=== PATIENT | female | born 1970 | race Asian ===

== ENCOUNTER 2020-11-17 05:13 | Day surgery (SDC) | payer OTHER ==
[2020-11-14 13:07] VITALS: BMI 26.5
[2020-11-17] MEDS ORDERED: MIDAZOLAM HCL 2 MG/2 ML SINGLE DOSE VIAL ONE ×3 (10:16→11:01)
[2020-11-17] MEDS ORDERED: SCOPOLAMINE HYDROBROMIDE 1 PATCH PATCH.TD72 ONE (10:25)
[2020-11-17] MEDS ORDERED: PROPOFOL 20 ML ONE (11:01)
[2020-11-17] MEDS ORDERED: IBUPROFEN 400 MG TABLET (FP) PO PRN (11:26)
[2020-11-17] MEDS ORDERED: ACETAMINOPHEN 325 MG TABLET (FP) PO PRN (11:26)
[2020-11-17] MEDS ORDERED: HYDROmorphone HCl 2 MG/ML VIAL ONE (12:13)
[2020-11-17] MEDS ORDERED: ceFAZolin SODIUM 1 GM VIAL ONE (12:16)
[2020-11-17] MEDS ORDERED: DEXAMETHASONE SOD PHOSPHATE 4 MG/1 ML VIAL ONE (12:16)
[2020-11-17] MEDS ORDERED: NEOSTIGMINE METHYLSULFATE 0.5 MG/ML - 10 ML MDV ONE (12:30)
[2020-11-17] MEDS ORDERED: GLYCOPYRROLATE 0.2 MG/1 ML VIAL ONE (12:30)
[2020-11-17] MEDS ORDERED: ACETAMINOPHEN 500 MG TABLET (FP) PO ONE (13:05)
[2020-11-17] MEDS ORDERED: LACTATED RINGERS SOLUTION 1,000 ML IV SCH (13:15)
[2020-11-17] MEDS ORDERED: ACETAMINOPHEN INJECTION 100 ML IVPB ONE (13:18)
[2020-11-17] MEDS ORDERED: ONDANSETRON 4 MG/2 ML VIAL ONE ×2 (13:56→15:18)
[2020-11-17] MEDS: ONDANSETRON 4 MG/2 ML VIAL IVPUSH PRN ×2 (13:56→15:17)
[2020-11-17] MEDS ORDERED: MECLIZINE HCL 12.5 MG TABLET PO ONE (16:24)
[2020-11-17 16:42] VITALS: BP 133/85; PULSE 65; TEMP 98
== END 2020-11-17 17:30 | disposition home or self-care (01) ==
LOC: JASU-SURG 05:13
PROVIDERS: ATTEND Obstetrics & Gynecology
PROC: 0UB97ZZ Excision of Uterus, Via Natural or Artificial Opening (ICD-10-PCS; principal; 2020-11-17 10:45)
DX: D25.0 Submucous leiomyoma of uterus (principal)
CPT/HCPCS: 84703; 86850; 86900; 86901; 88305-TC; 94760; J0131